=== PATIENT | male | born 2005 | race Caucasian/White ===

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

== ENCOUNTER 2024-09-05 22:09 | Emergency (ER) | payer BC, MEDICAID ==
[~2024-09-05] VITALS: Ht 182.9 cm; Wt 60.0 kg
[2024-09-05 22:12] VITALS: BP 144/65; PULSE 86; RESP 15; O2SAT 98
[2024-09-06] MEDS: LIDOcaine 1% 30ml preserv. free vial IJ STA (00:18)
--- NOTE | 2024-09-06 00:19 | Physician Documentation ---
History of Present Illness ~ Chief Complaint: Bite-animal Stated Complaint: FINGER LAC Time Seen by MD: 23:09 Primary Medical Doctor: [facility] HPI This is a 19-year-old male who presents with a laceration to his left 5th finger after his dog accidentally bit him on the hand. Dog is reported to be fully vaccinated. Patient reports unknown last Tdap. Patient reports no other acute symptoms or concerns. Tetanus within 5 years?: Yes Medication Reconciliation Allergies: Coded Allergies: ibuprofen (Verified Adverse Reaction, Unknown, only one kidney., 09/05/24) Scheduled Amox Tr/Potassium Clavulanate (Augmentin 875-125 Tablet), 1 TAB PO Q12H Past Medical History Past Medical History: No Pertinent History Past Surgical History: other Other Past Surgical History: Hernia repair Alcohol Use: None Drug Use: none Lives with: Mother Lives In: Home Occupation: employed Review of Systems ROS Dog bite to hand as stated above in the HPI, otherwise all systems are reviewed and negative. Physical Exam Vital Signs: Temperature: 96.8, Source: Temporal, Heart Rate: 86, Respiratory Rate: 15, BP: 144/65, Pulse Oximetry: 98, Weight: 59.950 Physical Exam VITALS: Reviewed and as above. GENERAL: Alert, nontoxic appearing, no apparent distress. RESPIRATORY: No increased work of breathing, no respiratory distress, speaking in full clear sentences SKIN: Approximately 4 cm shallow laceration to the medial aspect of right 5th finger, no evidence of retained foreign body, no evidence of tendon involvement no evidence of joint involvement Procedures Laceration/Wound Repair Laceration/Wound Repair : Location: Right 5th finger Length (cm): 1.5 Anesthesia: Lidocaine (Utilizing digital block) Volume Anesthetic (mls): 5 Prep: irrigated by nurse Foreign Body: not identified Repaired: skin Wound Repaired With: sutures Suture Size/Type: 5-0, ethilon Number of Superficial Sutures: 4 Layer Closure?: No Dressing Applied: simple Splint Applied?: Yes Type of Splint Applied: Finger Tolerated Procedure Well?: yes, no complications Procedure Note 4 cm total laceration length, 1.5 cm laceration amenable to repair, due to this being dog bite loosely approximated laceration. Progress Results/Orders Results/Orders Orders - EVGENY KUMAR Laceration/I&D Tray Set Up (09/05/24 23:56) Wound Care Orders (09/05/24 23:56) Completed Orders - EVGENY KUMAR [employer] Lidocaine 1% 30ml Vial (Xylocaine 1% Via (09/05/24 23:44) Tetanus/Pertuss/Diph Acell/Pf (Boostrix (09/06/24 00:00) Amox Tr/Potassium Clavulanate (Augmentin (09/06/24 00:00) Medications Received in ER Medications (Trade) Dose Ordered Sig/Raissa Route PRN Reason Start Time Stop Time Status Last Admin Dose Admin (Boostrix vaccine syringe) 0.5 ml ONCE ONCE IMVAC 09/06/24 00:00 09/06/24 00:01 DC 09/06/24 00:20 0.5 ML (Augmentin 875-125mg tablet) 1 tab ONCE ONCE PO 09/06/24 00:00 09/06/24 00:01 DC 09/06/24 00:20 1 TAB Vital Signs 09/05/24 09/06/24 22:12 00:52 Temp 96.8 96.8 Pulse 86 Resp 15 B/P (MAP) 144/65 Pulse Ox 98 Medical Decision Making Findings This 19-year-old male presented with a shallow laceration to the medial aspect of his 5th right finger caused by a dog bite there was no evidence of neurovascular injury or tendon involvement. Tdap was updated. Total length of laceration was 4 cm though only 1.5 cm was amenable to closure, this area was loosely approximated, patient tolerated procedure well. Patient's Tdap was updated and 1st dose of antibiotic provider. Patient is otherwise well- appearing and appropriate for outpatient follow up, patient discharged with home care instructions, follow up instructions, return precautions, patient verbalized understanding of instructions. Patient discharged on course of oral antibiotics. Differential Dx:Considerations: Include: Abrasion, Cellulitis, Fracture, Hematoma, Neurovascular injury, Punture wound, Retained foreign body Departure Disposition: 01 HOME / SELF CARE / HOMELESS Impression: Primary Impression: Dog bite Qualified Codes: W54.0XXA - Bitten by dog, initial encounter Condition: Improved Discharge Instructions: Animal Bite, Adult Additional Instructions: Keep the area clean dry and covered. You may wash it gently but do not soak the area. Keep an eye on the wound for signs of infection such as increased swelling and redness to the area or purulent drainage from the wound. Please take the antibiotics as prescribed. Please return to your choice of medical provider in 2-3 days for wound recheck. Please return to your choice of medical provider in 7-10 days for suture removal. Please wear the splint until the sutures are removed. Please follow up with your primary care provider in the next few days. Please return to the emergency department for any new or worsening concerning symptoms. Referrals: NO PRIMARY CARE PROVIDER (PCP) Prescriptions Amox Tr/Potassium Clavulanate (Augmentin 875-125 Tablet) 1 Each Tablet 1 TAB PO Q12H for 7 Days, #14 TAB Prov: EVGENY KUMAR 09/06/24 Education Educated: Patient Educated regarding: diagnosis, treatment, prognosis, need for follow up Signature Scribe Signature: No scribe Attestation: The note accurately reflects work and decisions made by me.ALBA Horton 09/06/24 01:34 EVGENY KUMAR Sep 06, 2024 00:19
[2024-09-06] MEDS: amox tr/potassium clavulanate 875/125mg TAB PO ONE (00:20)
[2024-09-06] MEDS: TETanus/Pertussis (Acell)/Diphther VAC/PF (Tdap-Adult) 0.5ml syringe IMVAC ONE (00:20)
[2024-09-06] MEDS ORDERED: AMOX-117 PO (00:39)
[2024-09-06 00:52] VITALS: TEMP 96.8
== END 2024-09-06 00:53 | disposition home or self-care (01) ==
LOC: ER 22:09
DX: S61.217A Laceration without foreign body of left little finger without damage to nail, initial encounter (principal); Z88.6 Allergy status to analgesic agent; Z98.890 Other specified postprocedural states; W54.0XXA Bitten by dog, initial encounter; Y93.9 Activity, unspecified; Y92.89 Other specified places as the place of occurrence of the external cause; Y99.8 Other external cause status
CPT/HCPCS: 12002; 90471; 90715; 99283

== ENCOUNTER 2024-12-21 14:28 | Emergency (ER) | payer BC ==
[~2024-12-21] VITALS: Ht 182.9 cm; Wt 82.6 kg
--- NOTE | 2024-12-21 15:40 | Physician Documentation ---
History of Present Illness ~ Chief Complaint: Extremity Swelling Stated Complaint: RING STUCK ON FINGER Time Seen by MD: 14:48 Primary Medical Doctor: [facility] Patient is seen today with complaints of pain and swelling in his right middle finger after he jammed the finger and his metal rings now stuck on the finger. Patient denies any laceration or numbness or tingling of the finger and has no other concern or complaint at this time. Tetanus within 5 years: Yes Medication Reconciliation Allergies: Coded Allergies: ibuprofen (Verified Adverse Reaction, Unknown, only one kidney., 12/21/24) Past Medical History Past Medical History: No Pertinent History Past Surgical History: other Other Past Surgical History: Hernia repair Alcohol Use: None Drug Use: none Lives with: Mother Lives In: Home Occupation: employed Review of Systems Constitutional: Denies: chills, fever, weakness Eyes: Denies: pain, blurred vision ENT: Denies: ear pain, nose pain, throat pain, mouth pain Respiratory: Denies: cough, shortness of breath Cardiovascular: Denies: chest pain, palpitations Gastrointestinal: Denies: abdominal pain, nausea, vomiting Genitourinary: Denies: burning, dysuria Male Genitalia: Denies: penile discharge, testicular pain Neurological: Denies: headache, dizziness Musculoskeletal: Denies: pain, swelling Integumentary: Denies: rash, lesions Allergic/Immunologic: Denies: hives, itching Hematologic/Lymphatic: Denies: no symptoms reported Psychiatric: Denies: depression, anxiety Physical Exam Vital Signs: Temperature: 97.9, Source: Oral, Heart Rate: 81, Respiratory Rate: 18, BP: 119/62, Pulse Oximetry: 96, Weight: 82.600 Oxygen Flow Rate: 0 Physical Exam General: Awake and Alert, no acute distress. HEENT: Conjunctiva pink, Sclera clear, Mucus Membranes moist. Neck: Supple without masses and tenderness. Resp: Unlabored. Lungs clear to auscultation bilaterally. Heart: Regular Rate and rhythm, normal S1 and S2 without murmur, rub or gallop. Musculoskeletal: Patient on exam does have mild swelling of the right long finger. I did examine the finger before and after removal of the ring. Patient is neurovascularly intact distally. Motor function is intact and range of motion and strength are intact. Extremities: No cyanosis,clubbing or edema. Skin: Warm and Dry. Progress Results/Orders Results/Orders Vital Signs 12/21/24 14:36 Temp 97.9 Pulse 81 Resp 18 B/P (MAP) 119/62 Pulse Ox 96 O2 Flow Rate 0 Medical Decision Making Additional information obtaine: N/A Findings Patient is seen today with complaints of pain and swelling in his right middle finger after he jammed the finger and his metal rings now stuck on the finger. Patient denies any laceration or numbness or tingling of the finger and has no other concern or complaint at this time. Patient did have ring removed successfully. Patient will return to ED with any worsening, concerning or changing symptoms. Patient's physical exam findings status post ring removal are very encouraging and patient will follow up with primary care in 1-5 days if no better as needed sooner. General Diff Dx:Considerations: Unlikely: Abrasion, Contusion, Fracture, Hematoma, Laceration, Malunion, Neurovascular injury, Open fracture, Sprain, Ulcer, Other Shoulder Diff Dx:Consideration: Unlikely: AC separation, Adhesive capsulitis, Arthritis, Bicipital tendonitis, Calcific tendonitis, Cervical disc disease, Contusion, Dislocation, Fracture-humerus, Fracture-scapula, Fracture-clavicle, GB disease, Hematoma, Impingement syndrome, Myocardial infarction, Neurovascular injury, Open fracture-humerus, Open fracture-scapula, Open fracture-clavicle, Rotator cuff injury, SC dislocatoin, Sprain, Subacromial bursitis, Other Elbow Diff Dx:Considerations: Unlikely: Abrasion, Arthritis, Contustion, DJD, Fracture-humerus, Fracture-radial head, Fracture-radius, Fracture-ulna, Gout, Hematoma, Laceration, Neurovascular injury, Olecranon bursitis, Open fracture, Osteomyelitis, Radial head subluxation, Rheumatoid arthritis, Septic, Sprain, Ulcer, Other Wrist Diff Dx:Considerations: Unlikely: Abrasion, Arthritis, DJD, Gout, Rheumatoid, Septic, Carpal tunnel snydrome, Contusion, Dislocation, Fracture- carpal, Fracture-radius, Fracture-ulna, Ganglion, Laceration, Neurovascular injury, Open fracture, Strain, Other Hand Diff Dx:Considerations: Include: DJD, Fracture-metacarpal, Fracture- phalynx Finger Diff Dx:Considerations: Include: Abrasion, Cellulitis, Dislocation, Hematoma, Laceration, Neurovascular injury Departure Disposition: 01 HOME / SELF CARE / HOMELESS Impression: Primary Impression: Finger swelling Condition: Improved Additional Instructions: Patient did have ring removed successfully. Patient will return to ED with any worsening, concerning or changing symptoms. Patient's physical exam findings status post ring removal are very encouraging and patient will follow up with primary care in 1-5 days if no better as needed sooner. Referrals: NO PRIMARY CARE PROVIDER (PCP) Signature Scribe Signature: No scribe Attestation: No scribe VAZQUEZ TELLEZ PAC Dec 21, 2024 15:40
[2024-12-21 15:45] VITALS: BP 120/70; PULSE 80; RESP 16; TEMP 98; O2SAT 98
== END 2024-12-21 15:46 | disposition home or self-care (01) ==
LOC: ER 14:29
DX: M79.644 Pain in right finger(s) (principal); M79.89 Other specified soft tissue disorders; Z88.6 Allergy status to analgesic agent; Z98.890 Other specified postprocedural states
CPT/HCPCS: 99284